=== PATIENT | female | born 1960 | race Caucasian/White ===

== ENCOUNTER 2021-08-03 16:32 | Emergency (ER) | payer OTHER ==
[2021-08-03 17:10] VITALS: BP 137/83; PULSE 62; TEMP 97.8; BMI 25.1
[2021-08-03] MEDS ORDERED: LIDOCAINE HCL 1%, 10 MG/ML (20ML VIAL) ONE (17:43)
[2021-08-03] MEDS ORDERED: SULFAMETHOXAZOLE/TRIMETHOPRIM 800MG/160MG D.S. TABLET PO ONE (18:04)
[2021-08-03] MEDS ORDERED: CEPHALEXIN MONOHYDRATE 500 MG CAPSULE (UD) PO ONE (18:04)
[2021-08-03] MEDS ORDERED: BACITRACIN 15 GM TUBE TOPICAL OINTMENT ONE (18:10)
[2021-08-03] MEDS ORDERED: CEPHALEXIN MONOHYDRATE 500 MG CAPSULE (UD) ONE (18:10)
== END 2021-08-03 21:21 | disposition home or self-care (01) ==
LOC: JERFT 16:32
PROC: 0H9QXZZ Drainage of Finger Nail, External Approach (ICD-10-PCS; principal; 2021-08-03)
DX: L03.012 Cellulitis of left finger (principal); L03.114 Cellulitis of left upper limb
CPT/HCPCS: 73090-TC-LT-FY; 73140-TC-LT-FY; 99284-25

== ENCOUNTER 2022-12-08 04:37 | Day surgery (SDC) | payer OTHER ==
[2022-12-05 16:04] VITALS: BMI 24.9
[2022-12-08 11:42] VITALS: TEMP 97.7
[2022-12-08 12:49] VITALS: BP 123/56; PULSE 49; RESP 18
== END 2022-12-08 13:09 | disposition home or self-care (01) ==
LOC: JASU-ENDO 04:37
PROVIDERS: ATTEND Internal Medicine Gastroenterology
PROC: 0DJD8ZZ Inspection of Lower Intestinal Tract, Via Natural or Artificial Opening Endoscopic (ICD-10-PCS; principal; 2022-12-08 11:30)
DX: Z12.11 Encounter for screening for malignant neoplasm of colon (principal)

== ENCOUNTER 2024-05-23 21:09 | Emergency (ER) | payer MEDICARE, OTHER ==
[2024-05-23 21:23] VITALS: BP 155/77; PULSE 73; RESP 18; TEMP 98.4; BMI 24.3
[2024-05-23] MEDS ORDERED: predniSONE 20 MG TABLET (UD) ONE (21:50)
[2024-05-23] MEDS ORDERED: ALBUTEROL SO4 HFA INHALER IH ONE (21:50)
[2024-05-23] MEDS: predniSONE 20 MG TABLET (UD) PO ONE (21:58)
[2024-05-23] MEDS: ALBUTEROL SO4 HFA INHALER IH ONE (21:58)
== END 2024-05-23 23:59 | disposition home or self-care (01) ==
LOC: JER 21:09
DX: J18.9 Pneumonia, unspecified organism (principal); J40 Bronchitis, not specified as acute or chronic; R05.9 Cough, unspecified; Z20.822 Contact with and (suspected) exposure to COVID-19
CPT/HCPCS: 0241U-QW; 71046-TC-FY; 99283-25

== ENCOUNTER 2024-06-10 08:36 | Emergency (ER) | payer MEDICARE, OTHER ==
[2024-06-10 08:43] VITALS: BMI 32.1
[2024-06-10 09:59] LABS: BASO % 0.4 % (0-2.0); EOS % 1.4 % (0-4.5); HEMOGLOBIN 13.3 GM/dL (10.7-15.3); LYMPH % 17.2 % (8-40); MCH 30.2 pg (25.7-33.7); MCHC 33.2 g/dl (32.0-36.0); MEAN PLT VOLUME 9.8 fl (7.5-11.1); MONO % 7.5 % (3.8-10.2); NEUT % 73.5 % (42.8-82.8); PLATELET COUNT 183 10^3/uL (134-434); RDW 13.9 % (11.6-15.6); WHITE BLOOD COUNT 8.9 K/mm3 (4.0-10.0)
[2024-06-10 10:13] LABS: POTASSIUM 4.1 mmol/L (3.5-5.1)
[2024-06-10 10:15] LABS: CALCIUM 8.8 mg/dL (8.5-10.1)
[2024-06-10 10:16] LABS: ALBUMIN 3.4 g/dl (3.4-5.0); BLOOD UREA NITROGEN 12.1 mg/dL (7-18); MAGNESIUM 2.1 mg/dL (1.8-2.4)
[2024-06-10 10:19] LABS: CREATININE 0.6 mg/dL (0.55-1.3)
[2024-06-10 10:20] LABS: BILIRUBIN,TOTAL 0.3 mg/dL (0.2-1); TOT PROT 6.7 g/dl (6.4-8.2)
[2024-06-10 11:45] VITALS: BP 123/68; PULSE 62; RESP 20; TEMP 98.2
== END 2024-06-10 11:43 | disposition home or self-care (01) ==
LOC: JER 08:36
DX: R19.7 Diarrhea, unspecified (principal)
CPT/HCPCS: 36415; 80053; 83735; 84439; 84443; 85025; 99283-25

== ENCOUNTER 2024-06-17 12:14 | Emergency (ER) | payer MEDICARE, OTHER ==
[2024-06-17 12:28] VITALS: BP 137/70; PULSE 70; RESP 19; TEMP 98.4; BMI 24.0
[2024-06-17 13:22] LABS: URINE APPEARANCE CLEAR; URINE BILIRUBIN NEGATIVE (NEGATIVE); URINE COLOR YELLOW; URINE GLUCOSE (UA) NEGATIVE (NEGATIVE); URINE KETONE NEGATIVE (NEGATIVE); URINE LEUK ESTERASE NEGATIVE (NEGATIVE); URINE NITRITE NEGATIVE (NEGATIVE); URINE PROTEIN NEGATIVE (NEGATIVE); URINE UROBILINOGEN 0.2 mg/dL (0.2-1.0)
== END 2024-06-17 14:01 | disposition home or self-care (01) ==
LOC: JER 12:14
DX: K62.89 Other specified diseases of anus and rectum (principal); R05.9 Cough, unspecified; B34.9 Viral infection, unspecified
CPT/HCPCS: 81003; 82272; 87086; 99283-25